=== PATIENT | female | born 1960 | race Caucasian/White ===

== ENCOUNTER 2018-10-03 03:22 | Emergency (ER) | payer MEDICAID ==
[~2018-10-03] VITALS: Ht 154.9 cm; Wt 79.7 kg
[2018-10-03 03:29] VITALS: Ht 154.9 cm; Wt 79.7 kg
[2018-10-03] MEDS ORDERED: METF-849 PO (04:30)
[2018-10-03] MEDS ORDERED: METO-407 PO (04:30)
[2018-10-03] MEDS ORDERED: ASPI-817 PO (04:30)
[2018-10-03] MEDS ORDERED: ATOR20TA38 PO (04:31)
[2018-10-03] MEDS ORDERED: LOSA25TA12 PO (04:31)
[2018-10-03] MEDS ORDERED: ONDANSETRON 4 MG INJ IV STA (04:39)
[2018-10-03] MEDS ORDERED: morphine 4 MG/ML VIAL IV STA (04:39)
--- NOTE | 2018-10-03 05:37 | ERD ---
ER Documentation Chief Complaint Chief Complaint PT c/o CP coming and going since Monday HPI This is a very pleasant 58-year female, with chest pain, ongoing since Monday. Pain is mild to moderate intensity no exacerbating alleviating factors. Patient denies nausea vomiting or chills or shortness breath. Denies diaphoresis. Den ies any other current issues. ROS All systems reviewed and are negative except as per history of present illness. Medications Home Meds Reported Medications Atorvastatin Calcium* (Atorvastatin Calcium*) 20 Mg Tablet, 20 MG PO QHS, #30 TAB 10/03/18 Losartan Potassium* (Losartan Potassium*) 25 Mg Tablet, 25 MG PO DAILY, TAB 10/03/18 Aspirin* (Aspirin* EC) 81 Mg Tablet.dr, 81 MG PO DAILY, TAB 10/03/18 Metformin* (Glucophage*) 500 Mg Tab, 500 MG PO DAILY, #30 TAB 10/03/18 Metoprolol Tartrate* (Lopressor*) 100 Mg Tablet, 100 MG PO BID, #60 TAB 10/03/18 Allergies Allergies: Coded Allergies: No Known Allergy (Unverified , 10/03/18) PMhx/Soc Hx Cardiac Disorders: Yes (HTN) Hx Alcohol Use: No Hx Substance Use: No Hx Tobacco Use: No Smoking Status: Never smoker Physical Exam Vitals Vital Signs Date Temp Pulse Resp B/P (MAP) Pulse Ox O2 O2 Flow FiO2 Time Delivery Rate 10/03/18 65 12 183/85 100 Room Air 04:58 (117) 10/03/18 Nasal 1 03:43 Cannula 10/03/18 97.1 61 16 187/89 97 03:29 (121) Physical Exam Const: No acute distress Head: Atraumatic Eyes: Normal Conjunctiva ENT: Normal External Ears, Nose and Mouth. Neck: Full range of motion. No meningismus. Resp: Clear to auscultation bilaterally Cardio: Regular rate and rhythm, no murmurs Abd: Soft, non tender, non distended. Normal bowel sounds Skin: No petechiae or rashes Back: No midline or flank tenderness Ext: No cyanosis, or edema Neur: Awake and alert Psych: Normal Mood and Affect Result Diagram: 10/03/18 0357 10/03/18 0357 Results 24 hrs Laboratory Tests Test 10/03/18 03:57 White Blood Count 7.3 10^3/ul Red Blood Count 4.51 10^6/ul Hemoglobin 12.1 g/dl Hematocrit 37.6 % Mean Corpuscular Volume 83.4 fl Mean Corpuscular Hemoglobin 26.8 pg Mean Corpuscular Hemoglobin Concent 32.2 g/dl Red Cell Distribution Width 12.1 % Platelet Count 206 10^3/UL Mean Platelet Volume 12.2 fl Immature Granulocytes % 0.100 % Neutrophils % 48.8 % Lymphocytes % 39.7 % Monocytes % 6.3 % Eosinophils % 3.9 % Basophils % 1.2 % Nucleated Red Blood Cells % 0.0 /100WBC Immature Granulocytes # 0.010 10^3/ul Neutrophils # 3.5 10^3/ul Lymphocytes # 2.9 10^3/ul Monocytes # 0.5 10^3/ul Eosinophils # 0.3 10^3/ul Basophils # 0.1 10^3/ul Nucleated Red Blood Cells # 0.0 10^3/ul Sodium Level 141 mmol/L Potassium Level 4.3 mmol/L Chloride Level 107 mmol/L Carbon Dioxide Level 24 mmol/L Anion Gap 10 Blood Urea Nitrogen 15 mg/dl Creatinine 0.65 mg/dl Est Glomerular Filtrat Rate mL/min > 60 mL/min Glucose Level 142 mg/dl Calcium Level 9.0 mg/dl Total Bilirubin 0.4 mg/dl Direct Bilirubin 0.00 mg/dl Indirect Bilirubin 0.4 mg/dl Aspartate Amino Transf (AST/SGOT) 27 IU/L Alanine Aminotransferase (ALT/SGPT) 17 IU/L Alkaline Phosphatase 110 IU/L Troponin I 0.048 ng/ml B-Type Natriuretic Peptide 155 PG/ML Total Protein 7.2 g/dl Albumin 4.0 g/dl Globulin 3.20 g/dl Albumin/Globulin Ratio 1.25 Current Medications Medications Dose Sig/Dawna Start Time Status Last (Trade) Ordered Route PRN Stop Time Admin Dose Reason Admin Morphine 4 mg ONCE STAT 10/03/18 DC 10/03/18 Sulfate IV 04:39 04:52 (morphine) 10/03/18 04:49 Ondansetron 4 mg ONCE STAT 10/03/18 DC 10/03/18 HCl (Zofran IV 04:39 04:52 Inj) 10/03/18 04:49 Procedures/MDM EKG: Rate/Rhythm: [Normal Sinus Rhythm] QRS, ST, T-waves: [No changes consistent w/ acute ischemia] Impression: [No evidence of ischemia or arrhythmia] Chest X-ray 1V Interpreted by me: Soft Tissue: No acute abnormalities Bones: No acute abnormalities Mediastinum/Cardiac Silhouette/Lungs: [No acute abnormalities] Medical decision makin female with acute chest pain. Patient's symptoms are concerning for cardiac cause will require inpatient workup and continuous monitoring. Further w/u for ischemia, arrhythmia, PE or dissection will be deferred to the inpatient team. Accepting Care Team: Current data and ongoing care discussed. Time: 5:40 AM Primary Provider: IPA physician Consulting: Deferred to inpatient team Outstanding Data: none Departure Diagnosis: Primary Impression: Chest pain Chest pain type: unspecified Qualified Codes: R07.9 - Chest pain, unspecified Condition: Serious JASMYN ARRIAGA Oct 03, 2018 05:37
[2018-10-03] MEDS ORDERED: SOD CHLORIDE 0.9% 1,000 ML IV SCH (06:52)
[2018-10-03] MEDS ORDERED: KETOROLAC 15 MG INJ IV STA (06:52)
--- NOTE | 2018-10-03 06:55 | HP ---
Date/Time of Note Date/Time of Note DATE: 10/03/18 TIME: 06:40 Assessment/Plan VTE Prophylaxis SCD applied (from Nsg): Yes Pharmacological prophylaxis: NA/contraindicated Pharm contraindication: low risk/ambulating Assessment/Plan Hospital Course This is a 58-year-old female being admitted to the telemetry floor for observat ion for: #1 chest pain: Rule out ACS versus costal chondritis. We will trend cardiac enzymes, the first that was negative. EKG showed sinus bradycardia. Patient does have palpable tenderness to palpation over the chest wall however given her symptoms of dyspnea on exertion that have been going on for some time I do feel the patient will benefit from rule out of ACS as well as be a good candidate for a stress test. Her dyspnea also could be secondary to beta-jaci effect as her heart rate was noted to be 56. Will get an echocardiogram is also signs of cardiomegaly on chest x-ray. Will consult cardiology , check hemoglobin A1c lipid panel, TSH, as needed morphine/nitro #2 dyspnea on exertion: We will check an echocardiogram, will rule out for ACS. Will consult cardiology as I do feel the patient will benefit from a stress test. We will also hold off on the beta-jaci at the current time given her sinus bradycardia. #3 sinus bradycardia: Patient was noted to be hypertensive in the ED however bradycardic as well. At the current time we will hold her beta-jaci this likely will need to be titrated to a lower dose, will defer this to cardiology. #4 hypertension: Patient currently is only on metoprolol however losartan was also listed on the reconciled meds however she states she is only on metoprolol. At the current time will add on Norvasc 5 mg p.o. daily. We will need to confirm again with her whether she is on losartan or not. Likely will also need to titrate down the metoprolol dose or even discontinue it, will defer this to cardiology. #5 prediabetes: We will check hemoglobin A1c, hold metformin at the current time given any possible procedures/studies. #6 hyperlipidemia: Continue statin, check lipid panel #7 obesity: We will check hemoglobin A1c, lipid panel, TSH, encourage diet and exercise once patient is able #8 DVT GI prophylaxis: SCDs, no GI prophylaxis indicated Further treatment strategy will be implemented as per the clinical course. HPI/ROS Admit Date/Time Admit Date/Time Hx of Present Illness Chief complaint: Chest pain times 4 days This is a 58-year-old female with a past medical history of hypertension and prediabetes who presents today with chest pain times 4 days. Patient reports that she has experienced left-sided chest pain that radiated to her left arm. She states that the pain comes and goes. She states it feels like pressure. She had a similar episode before and she was told that it was muscular in nature. She does have tenderness to palpation as well on examination of the left chest. She does note that she walks very short distances and becomes short of breath going up and down stairs also causes her to be short of breath. Allergies: NKDA Medications: Metoprolol tartrate 100 mg twice daily Metformin Atorvastatin Aspirin 81 mg Of note losartan is also noted on her reconciled medications however she did not report this to me at the bedside we will need to confirm this. ROS Const: As per HPI Eyes : No pain discharge or redness or change in visual acuity ENT: No pain, sore throat, congestion, congestion, dysphagia or discharge Respiratory: As per HPI Cardiovascular: As per HPI GI : no change in appetite, abdominal pain, nausea, vomiting, diarrhea, constipation, or change in the color his stool Genitourinary: No dysuria, hematuria, flank pain , discharge or CVA tenderness Musculoskeletal: No joint pain, back pain, neck pain, restricted range of motion in neck or joints Skin: No rash, bruising or hives Neuro: No headache, dizziness, syncope, seizure, focal weakness Endocrine: No polyuria, polydipsia, temperature intolerance Psych: No hallucination, depression, anxiety or suicidal ideation PMH/Family/Social Past Medical History Hypertension, prediabetes, hyperlipidemia Coded Allergies: No Known Allergy (Unverified , 10/03/18) Past Surgical History Tubal ligation Family History Significant Family History: no pertinent family hx Social History Alcohol Use: none Smoking Status: Never smoker Drug Use: none Exam/Review of Systems Vital Signs Vitals Vital Signs Date Temp Pulse Resp B/P (MAP) Pulse Ox O2 O2 Flow FiO2 Time Delivery Rate 10/03/18 58 21 157/88 99 Room Air 06:05 (111) 10/03/18 1 03:43 10/03/18 97.1 03:29 Exam Exam General: Patient is a pleasant female currently lying in bed in no acute distress HEENT: Atraumatic, normocephalic. The pupils are equal, round and reactive. Extraocular motor are intact Neck: Supple with full range of motion. No rigidity or meningismus Chest: Tender to palpation over the left chest wall Lungs: Clear to auscultation bilaterally no crackles rales or wheezing Heart: Sinus bradycardia, no overt murmurs appreciated Abdomen: Soft , nontender, nondistended , bowel sounds are present. No guarding no rebound tenderness , No masses or organomegaly. No costovertebral temporal angle mass Extremities: Normal to inspection, no edema no cyanosis Neurologic: Normal mental status, speech normal, cranial nerves II through XII are intact, motor and sensory are intact, no focal weakness Additional Comments EKG: Sinus bradycardia at approximately 56 bpm, no ST or T wave changes concerning for acute ischemia PROCEDURE: XR Chest. CLINICAL INDICATION: Chest pain TECHNIQUE: AP portable chest was obtained COMPARISON: None. FINDINGS: The heart is mildly enlarged. No evidence of pulmonary vascular congestion acute lung consolidation pleural effusions and pneumothorax. Mild levorotatory scoliosis of the thoracic spine . IMPRESSION: Mild cardiomegaly without congestive heart or pneumonia. RPTAT:AAJJ Physician Adelso Date Time Electronically viewed and signed by Physician Adelso on 10/03/2018 06:03 BM/ CC: JASMYN ARRIAGA [id number] Results Result Diagram: 10/03/18 0357 10/03/18 0357 Results 24 hrs Laboratory Tests Test 10/03/18 03:57 White Blood Count 7.3 Red Blood Count 4.51 Hemoglobin 12.1 Hematocrit 37.6 Mean Corpuscular Volume 83.4 Mean Corpuscular Hemoglobin 26.8 L Mean Corpuscular Hemoglobin Concent 32.2 Red Cell Distribution Width 12.1 Platelet Count 206 Mean Platelet Volume 12.2 H Immature Granulocytes % 0.100 Neutrophils % 48.8 Lymphocytes % 39.7 Monocytes % 6.3 Eosinophils % 3.9 Basophils % 1.2 Nucleated Red Blood Cells % 0.0 Immature Granulocytes # 0.010 Neutrophils # 3.5 Lymphocytes # 2.9 Monocytes # 0.5 Eosinophils # 0.3 Basophils # 0.1 Nucleated Red Blood Cells # 0.0 Sodium Level 141 Potassium Level 4.3 Chloride Level 107 Carbon Dioxide Level 24 Anion Gap 10 Blood Urea Nitrogen 15 Creatinine 0.65 Est Glomerular Filtrat Rate mL/min > 60 Glucose Level 142 Calcium Level 9.0 Total Bilirubin 0.4 Direct Bilirubin 0.00 Indirect Bilirubin 0.4 Aspartate Amino Transf (AST/SGOT) 27 Alanine Aminotransferase (ALT/SGPT) 17 Alkaline Phosphatase 110 Troponin I 0.048 B-Type Natriuretic Peptide 155 H Total Protein 7.2 Albumin 4.0 Globulin 3.20 Albumin/Globulin Ratio 1.25 CYNTHIA VELIZ Oct 03, 2018 06:52
[2018-10-03] MEDS ORDERED: DOCUSATE SODIUM 100 MG CAP PO PRN (07:00)
[2018-10-03] MEDS ORDERED: NACL 0.9% 3 ML SYG IV SCH (07:00)
[2018-10-03] MEDS ORDERED: ONDANSETRON 4 MG TAB PO PRN (07:00)
[2018-10-03] MEDS ORDERED: NITROGLYCERIN (SL) 0.4 MG TAB SL PRN (07:00)
[2018-10-03] MEDS ORDERED: BISACODYL (EC) 5 MG TAB PO PRN (07:00)
[2018-10-03] MEDS ORDERED: morphine 2 MG INJ IV PRN (07:00)
[2018-10-03] MEDS ORDERED: AMLODIPINE 5 MG TAB PO SCH (07:00)
[2018-10-03 08:45] VITALS: BP 172/90; PULSE 55; RESP 20
[2018-10-03] MEDS ORDERED: ASPIRIN (EC) 81 MG TAB PO SCH (09:00)
[2018-10-03] MEDS ORDERED: ASPIRIN 325 MG TAB ONE (10:25)
--- NOTE | 2018-10-03 10:25 | DS ---
Date/Time of Note Date/Time of Note DATE: 10/03/18 TIME: 10:18 Discharge Summary Admission/Discharge Info Admit Date/Time Discharge Date/Time Discharge Diagnosis STEMI Hypertension Prediabetes Hyperlipidemia Obesity Procedures 10/13/18:Chest Xray IMPRESSION: Mild cardiomegaly without congestive heart or pneumonia. Hospital Course 58-year-old obese female with a past medical history of hypertension, dyslipidemia, prediabetes, was brought in for left-sided chest pain which started on Monday, got worse this morning at 3:00 which woke her up from bed. Patient also had shortness of breath, diaphoresis associated with it. In the emergency room, initial labs unremarkable. EKG without any acute ST or T wave changes. Chest x-ray no acute cardiopulmonary disease. Patient was given aspirin, morphine and was admitted for further work-up. As [facility] was [facility], around 10AM, nurse found patient diaphoretic,pale with chest pain. A stat 12 lead EKG showed remarkable ST elevation in LeadIII and V leads. Trops sent. Seen patient in ER 15. She is pale , diaphoretic and left side CP 10/10. Ptaient needs to go to cardiac cath and unfortunately [facility] heart cathode maker is down and will be transferred to [facility] w/STEMI ambulance call. ER to arrange transportation.I also spoke with pt's daughter at bedside. Case d/w . Approximately 60mins spent on evaluation and DC plan. Condition on DC:Guarded Home Meds Reported Medications Atorvastatin Calcium* (Atorvastatin Calcium*) 20 Mg Tablet, 20 MG PO QHS, #30 TAB 10/03/18 Losartan Potassium* (Losartan Potassium*) 25 Mg Tablet, 25 MG PO DAILY, TAB 10/03/18 Aspirin* (Aspirin* EC) 81 Mg Tablet., 81 MG PO DAILY, TAB 10/03/18 Metformin* (Glucophage*) 500 Mg Tab, 500 MG PO DAILY, #30 TAB 10/03/18 Metoprolol Tartrate* (Lopressor*) 100 Mg Tablet, 100 MG PO BID, #60 TAB 10/03/18 Primary Care Provider Not On Staff Doctor Pending Labs Laboratory Tests Test 10/03/18 03:57 10/03/18 09:33 White Blood Count 7.3 10^3/ul (4.8-10.8) Red Blood Count 4.51 10^6/ul (4.20-5.40) Hemoglobin 12.1 g/dl (12.0-16.0) Hematocrit 37.6 % (37.0-47.0) Mean Corpuscular Volume 83.4 fl (82.0-101.0) Mean Corpuscular Hemoglobin 26.8 pg (29.0-33.0) Mean Corpuscular 32.2 g/dl (32.0-37.0) Hemoglobin Concent Red Cell Distribution Width 12.1 % (11.5-14.5) Platelet Count 206 10^3/UL (140-415) Mean Platelet Volume 12.2 fl (7.4-10.4) Immature Granulocytes % 0.100 % (0.001-0.429) Neutrophils % 48.8 % (39.0-77.0) Lymphocytes % 39.7 % (15.0-51.0) Monocytes % 6.3 % (0.0-11.0) Eosinophils % 3.9 % (0.0-7.0) Basophils % 1.2 % (0.0-2.0) Nucleated Red Blood Cells % 0.0 /100WBC (0.0-0.0) Immature Granulocytes # 0.010 10^3/ul (0.0-0.031) Neutrophils # 3.5 10^3/ul (1.6-7.5) Lymphocytes # 2.9 10^3/ul (0.8-2.9) Monocytes # 0.5 10^3/ul (0.3-0.9) Eosinophils # 0.3 10^3/ul (0.0-0.5) Basophils # 0.1 10^3/ul (0.0-0.1) Nucleated Red Blood Cells # 0.0 10^3/ul (0.0-0.0) Sodium Level 141 mmol/L (135-144) Potassium Level 4.3 mmol/L (3.5-5.1) Chloride Level 107 mmol/L (97-110) Carbon Dioxide Level 24 mmol/L (21-31) Anion Gap 10 (5-13) Blood Urea Nitrogen 15 mg/dl (7-20) Creatinine 0.65 mg/dl (0.44-1.00) Est Glomerular Filtrat > 60 mL/min (>60) Rate mL/min Glucose Level 142 mg/dl (70-220) Hemoglobin A1c 6.2 % (0-5.9) Calcium Level 9.0 mg/dl (8.4-10.2) Magnesium Level 1.9 mg/dl (1.7-2.5) Total Bilirubin 0.4 mg/dl (0.2-1.3) Direct Bilirubin 0.00 mg/dl (0.00-0.20) Indirect Bilirubin 0.4 mg/dl (0-1.1) Aspartate Amino Transf (AST/SGOT) 27 IU/L (15-46) Alanine 17 IU/L (13-69) Aminotransferase (ALT/SGPT) Alkaline Phosphatase 110 IU/L (42-121) Troponin I 0.048 ng/ml (0.000-0.120) B-Type Natriuretic Peptide 155 PG/ML (0-125) Total Protein 7.2 g/dl (6.1-8.1) Albumin 4.0 g/dl (3.3-4.9) Globulin 3.20 g/dl (1.3-3.2) Albumin/Globulin Ratio 1.25 Triglycerides Level 145 mg/dl (0-149) Cholesterol Level 155 mg/dl (100-200) LDL Cholesterol, Calculated 92 mg/dl HDL Cholesterol 34 mg/dl (35-98) Cholesterol/HDL Ratio 4.5 RATIO Thyroid Stimulating Hormone (TSH) 4.280 MIU/L (0.465-4.680) Bedside Glucose 122 mg/dL (70-220) JEFFRY GOMEZ NP Oct 03, 2018 10:25
--- NOTE | 2018-10-03 10:28 | EN ---
Date/Time of Note Date/Time of Note DATE: 10/03/18 TIME: 10:25 Event Note Medicine Medicine Event Note Text page received from DR.Cynthia MARRUFO stating patient with STEMI Evaluate patient in ER. Patient in chest pain, diaphoretic and pale. EG consistent w/STEMI. Per staff, trop positive although its not update in [email or web address]. [facility] laboratory sampler is closed. Ptaient needs [facility] be [facility] Spoke with family. DC orders given and ER arranging STEMI ambulance transportation. Case d/w JEFFRY Sam V. [employer] Oct 03, 2018 10:28
--- NOTE | 2018-10-03 10:29 | PDOCDIS ---
Discharge Instructions DIAGNOSIS Discharge Diagnosis STEMI Hypertension Prediabetes Hyperlipidemia Obesity CONDITION [id number] Patient Condition: [id number] Guarded HOME CARE INSTRUCTIONS: [id number] Diet Instructions: [id number] Low Fat /Cholesterol FOLLOW UP/APPOINTMENTS Follow-up Plan DC JEFFRY PIMENTEL NP Oct 03, 2018 10:29
[2018-10-03] MEDS ORDERED: ASPIRIN 325 MG TAB PO ONE (10:30)
--- NOTE | 2018-10-03 16:55 | RADRPT ---
Echocardiogram Report Patient Name: MARCO HAYNES Gender: Female Date: 1960 Study Date: 03-Oct-2018 Word Processor Technician: Jody Vasquez [facility] Location: 622 Ref. Physician: CYNTHIA VELIZ Quality: Good Procedures: Transthoracic echocardiogram with complete 2D, M-Mode, and doppler examination. Indications: Atrial Fibrillation. 2D/M Mode Doppler Measurement Value Normal Ranges Measurement Value Normal Ranges LVIDd 2D 4.2 3.5 - 5.6 cm AV Peak Aman 2.0 m/sec LVIDs 2D 3.5 2.1 - 4.1 cm AV Peak PG 16.0 mmHg LVPWd 2D 1.0 0.6 - 1.1 cm AI Peak PG 114.0 mmHg IVSd 2D 1.1 0.6 - 1.1 cm AI Peak Aman 5.3 m/sec AoR Diam 2D 2.6 2.0 - 3.7 cm AI PHT 551.0 msec LA/Ao 2D 1 0 - 1 LVOT Peak Aman 0.9 m/sec EDV 2D 63.7 cm3 LVOT Peak PG 3.0 mmHg ESV 2D 33.2 cm3 MV E Peak Aman 0.7 m/sec LA Dimen 2D 3.3 2.3 - 4.0 cm MV A Peak Aman 0.9 m/sec MV E/A 0.8 MV Decel Time 303 msec Lat E` Aman 0.1 m/sec Lateral E/E` 11.4 Med E` Aman 0.0 m/sec MV E/A 0.8 TR Peak Aman 2.1 m/sec TR Peak PG 18.0 mmHg RVSP 21.0 mmHg RA Pressure 3.0 Findings Left Ventricle: Normal left ventricular systolic function. Normal left ventricular cavity size. Mild concentric left ventricular hypertrophy. Ejection fraction is visually estimated at 55 %. Tissue Doppler/Mitral Doppler indices are consistent with impaired relaxation (Stage I diastolic dysfunction). Right Ventricle: Normal right ventricular size. Normal right ventricular systolic function. Left Atrium: The left atrium is normal in size. Right Atrium: The right atrium is normal in size. Mitral Valve: Mitral valve leaflets appear mildly thickened. Mild mitral annular calcification. Mild mitral valve regurgitation. Aortic Valve: No hemodynamically significant aortic stenosis by doppler. Aortic cusps appear mildly calcified. Trace aortic valve regurgitation. Tricuspid Valve: Normal appearance of the tricuspid valve. Estimated peak PA systolic pressure 21 mmHg. There is trace tricuspid regurgitation. Pulmonic Valve: Pulmonic valve not well visualized. Pericardium: Normal pericardium with no significant pericardial effusion. Aorta: Normal aortic root. IVC: Normal size and normal respiratory collapse consistent with normal right atrial pressure. Conclusions Normal left ventricular systolic function. Normal left ventricular cavity size. Mild concentric left ventricular hypertrophy. Ejection fraction is visually estimated at 55 %. Tissue Doppler/Mitral Doppler indices are consistent with impaired relaxation (Stage I diastolic dysfunction). Normal right ventricular size. Normal right ventricular systolic function. The left atrium is normal in size. The right atrium is normal in size. Mild mitral valve regurgitation. No significant valvular stenosis or regurgitation seen of remaining visualized valves. Normal pericardium with no significant pericardial effusion. Electronically Signed By: Mateo Mane 03-Oct-2018 16:55:02 -0800 Patient Name: MARCO HAYNES Study Date: 03-Oct-2018 [id number]
[2018-10-03] MEDS ORDERED: ATORVASTATIN 20 MG TAB PO SCH (21:00)
[2018-10-04] MEDS ORDERED: ASPIRIN (EC) 81 MG TAB PO SCH (09:00)
== END 2018-10-03 17:43 | disposition home or self-care (01) ==
LOC: E/R 03:22 → CANBEDREQ 10:35 → E/R 17:43
DX: R07.9 Chest pain, unspecified (principal); I10 Essential (primary) hypertension
CPT/HCPCS: 36415; 71045; 80053; 80061; 82550; 82553; 82962; 83036; 83735; 83880; 84443; 84484; 85025; 93005; 93306; 96374; 96375; J1885; J2270; J2405; J7030; Z7502; Z7610